=== PATIENT | male | born 1995 | race Two or more races ===

== ENCOUNTER 2020-11-24 23:42 | Emergency (ER) | payer SELFPAY ==
[~2020-11-24] VITALS: Ht 175.3 cm; Wt 70.0 kg
[2020-11-25 00:06] VITALS: BP 102/48
== END 2020-11-25 04:27 | disposition left against medical advice (07) ==
LOC: ER 23:42
DX: Z53.21 Procedure and treatment not carried out due to patient leaving prior to being seen by health care provider (principal)